=== PATIENT | male | born 1995 | race African-American/Black ===

== ENCOUNTER 2020-01-20 07:09 | Emergency (ER) | payer BC ==
--- NOTE | 2020-01-20 08:26 | ER ---
Nurse's Notes [facility] Name: Enriqueta Kaufman Age: 24 yrs Sex: Male : 1995 Arrival Date: 01/20/2020 Time: 07:16 Bed 19 Private MD: Diagnosis: Fever, unspecified;Viral syndrome Presentation: 01/19 07:27 Chief complaint: Patient states: fever and chills since 0500 this AM. Tylenol last ss taken just prior to arrival. Coronavirus screen: The patient has NOT traveled to a country currently being monitored by the [facility] within the last 14 days. Proceed with normal triage procedures. Ebola Screen: Patient denies exposure to infectious person. Patient denies travel to an Ebola-affected area in the 21 days before illness onset. Initial Sepsis Screen: Does the patient have a suspected source of infection? No. Patient's initial sepsis screen is negative. Initial Sepsis Screen: Does the patient meet any 2 criteria? No. Patient's initial sepsis screen is negative. Risk Assessment: Do you want to hurt yourself or someone else? Patient reports no desire to harm self or others. 07:27 Method Of Arrival: Ambulatory ss 07:27 Acuity: JASMINE 4 ss Historical: - Allergies: 07:29 Azithromycin; ss - Home Meds: 07:29 None [Active]; ss - PMHx: 07:29 None; ss - PSHx: 07:29 None; ss - Immunization history:: Adult Immunizations up to date. - Social history:: Smoking status: Patient denies any tobacco usage or history of. - Family history:: not pertinent. - Hospitalizations: : No recent hospitalization is reported. Screenin:27 Abuse screen: Denies threats or abuse. Denies injuries from another. Nutritional ss screening: No deficits noted. Tuberculosis screening: Never had TB. Fall Risk None identified. Assessment: 07:27 General: Appears in no apparent distress. comfortable, well groomed, well developed, ss well nourished, Behavior is calm, cooperative, Reports chills for 0-12 hours, fever for 0-12 hours, feeling ill for 0-12 hours, fatigue for 0-12 hours. Pain: Denies pain. Neuro: Level of Consciousness is awake, alert, obeys commands, Oriented to person, place, time, situation. Cardiovascular: Capillary refill < 3 seconds is brisk in bilateral fingers. Respiratory: Airway is patent Respiratory effort is even, unlabored, Respiratory pattern is regular, symmetrical. GI: Patient currently denies diarrhea, nausea, vomiting. : No signs and/or symptoms were reported regarding the genitourinary system. Derm: Skin is intact, is healthy with good turgor, Skin is dry, Skin is pink, warm \T\ dry. normal. Musculoskeletal: Circulation, motion, and sensation intact. Range of motion: intact in all extremities, Swelling absent. Vital Signs: 07:27 Resp 16; Weight 97.52 kg; Height 5 ft. 11 in. (180.34 cm); Pain 0/10; ss 07:27 BP 119 / 68; Pulse 91; Temp 99.7(O); Pulse Ox 96% ; ss 07:27 Body Mass Index 29.99 (97.52 kg, 180.34 cm) ED Course: 07:16 Patient arrived in ED. rg4 07:22 Sven Ulloa MD is Attending Physician. rn 07:26 Yaritza Macias, RN is Primary Nurse. aa5 07:27 Patient has correct armband on for positive identification. Bed in low position. Call ss light in reach. 07:29 Triage completed. ss 07:29 Arm band placed on right wrist. ss 08:39 No provider procedures requiring assistance completed. Patient did not have IV access ss during this emergency room visit. Administered Medications: No medications were administered Outcome: 08:25 Discharge ordered by . rn 08:39 Discharged to home ambulatory. ss 08:39 Condition: good 08:39 Discharge instructions given to patient, Instructed on discharge instructions, follow up and referral plans. medication usage, Demonstrated understanding of instructions, follow-up care, medications. 08:40 Patient left the ED. ss Signatures: Sven Ulloa MD MD rn Calderon, Audri, RN DAGO aaAntonella Haas RN RN ss Garcia, Rubi rg4
--- NOTE | 2020-01-20 08:26 | EDPHYS ---
Physician Documentation [facility] Name: Enriqueta Kaufman Age: 24 yrs Sex: Male : 1995 Arrival Date: 01/20/2020 Time: 07:16 Bed 19 Private MD: ED Physician Sven Ulloa HPI: 01/19 07:48 This 24 yrs old Male presents to ER via Ambulatory with complaints of Fever. rn 07:48 The patient reports fever, not measured (subjective). Onset: The symptoms/episode rn began/occurred this morning. Modifying factors: there are no obvious modifying factors. Severity of symptoms: At their worst the symptoms were mild in the emergency department the symptoms have improved. The patient has not experienced similar symptoms in the past. Reports woke up today with chills, shaking, subjective fever, and headache. [place] fine when went to bed, no recent travel, no obvious sick contacts. No cough/abd pain. Just had an episode of loose stool. . Historical: - Allergies: 07:29 Azithromycin; ss - Home Meds: 07:29 None [Active]; ss - PMHx: 07:29 None; ss - PSHx: 07:29 None; ss - Immunization history:: Adult Immunizations up to date. - Social history:: Smoking status: Patient denies any tobacco usage or history of. - Family history:: not pertinent. - Hospitalizations: : No recent hospitalization is reported. ROS: 07:48 Constitutional: + fever and chills Eyes: Negative for injury, pain, redness, and learning developer, ENT: Negative for injury, pain, and discharge, Neck: Negative for injury, pain, and swelling, Cardiovascular: Negative for chest pain, palpitations, and edema, Respiratory: Negative for shortness of breath, cough, wheezing, and pleuritic chest pain, Abdomen/GI: Negative for abdominal pain, nausea, vomiting, and constipation, MS/Extremity: Negative for injury and deformity, Skin: Negative for injury, rash, and discoloration, Neuro: Negative for weakness, numbness, tingling, and seizure. Exam: 07:48 Constitutional: This is a well developed, well nourished patient who is awake, alert, rn and in no acute distress. Ambulatory to room without difficulty or assistance Head/Face: Normocephalic, atraumatic. Eyes: Pupils equal round and reactive to light, extra-ocular motions intact. Lids and lashes normal. Conjunctiva and sclera are non-icteric and not injected. Cornea within normal limits. Periorbital areas with no swelling, redness, or edema. ENT: MMM, no pharyngeal erythema or swelling, no lesions Neck: Trachea midline, no thyromegaly or masses palpated, and no cervical lymphadenopathy. Supple, full range of motion without nuchal rigidity, or vertebral point tenderness. No Meningismus. Cardiovascular: Regular rate and rhythm. No pulse deficits. Respiratory: Lungs have equal breath sounds bilaterally, clear to auscultation. No increased work of breathing, no retractions or nasal flaring. Abdomen/GI: soft, non-tender Skin: Warm, dry, and no evidence of cellulitis. MS/ Extremity: Pulses equal, no cyanosis. Neurovascular intact. Full, normal range of motion. Equal circumference. Neuro: Awake and alert, GCS 15, oriented to person, place, time, and situation. Cranial nerves II-XII grossly intact. Motor strength 5/5 in all extremities. Sensory grossly intact. Cerebellar exam normal. Normal gait. Vital Signs: 07:27 Resp 16; Weight 97.52 kg; Height 5 ft. 11 in. (180.34 cm); Pain 0/10; ss 07:27 BP 119 / 68; Pulse 91; Temp 99.7(O); Pulse Ox 96% ; ss 07:27 Body Mass Index 29.99 (97.52 kg, 180.34 cm) MDM: 07:22 Patient medically screened. rn 08:23 Differential diagnosis: viral Infection, bacterial infection, URI, gastroenteritis. rn Data reviewed: vital signs, nurses notes, lab test result(s), and as a result, I will discharge patient. Counseling: I had a detailed discussion with the patient and/or guardian regarding: the historical points, exam findings, and any diagnostic results supporting the discharge/admit diagnosis, lab results, the need for outpatient follow up, to return to the emergency department if symptoms worsen or persist or if there are any questions or concerns that arise at home. Response to treatment: the patient's symptoms have markedly improved after treatment, the patient's condition has returned to base line, the patient is now symptom free, and as a result, I will discharge patient. Special discussion: I discussed with the patient/guardian in detail that at this point there is no indication for admission to the hospital. It is understood, however, that if the symptoms persist or worsen the patient needs to return immediately for re-evaluation. ED course: Pt improved with his own anti-pyretic at home, neg flu, normal vitals, feels much better, may be early viral syndrome given loose stool. Will dc home with fever Control, rest, and hydration.. 01/19 07:34 Order name: Flu; Complete Time: 08:25 rn Administered Medications: No medications were administered Disposition: 01/20/20 08:25 Discharged to Home. Impression: Fever, unspecified, Viral syndrome. - Condition is Stable. - Discharge Instructions: Fever, Adult. - Medication Reconciliation Form, Thank You Letter, Antibiotic Education, Prescription Opioid Use form. - Follow up: Private Physician; When: As needed; Reason: Recheck today's complaints, Re-evaluation by your physician. - Problem is new. - Symptoms have improved. Signatures: Dispatcher [employer] EDRI Sven Ulloa MD MD rn Smirch, Shelby, RN RN ss Corrections: (The following items were deleted from the chart) 08:40 08:25 01/20/2020 08:25 Discharged to Home. Impression: Fever, unspecified; Viral ss syndrome. Condition is Stable. Forms are Medication Reconciliation Form, Thank You Letter, Antibiotic Education, Prescription Opioid Use. Follow up: Private Physician; When: As needed; Reason: Recheck today's complaints, Re-evaluation by your physician. Problem is new. Symptoms have improved. rn
[2020-01-20 08:46] VITALS: BP 119/68; TEMP 99.7; O2SAT 96
== END 2020-01-20 08:40 | disposition home or self-care (01) ==
LOC: ER 07:09
DX: B34.9 Viral infection, unspecified (principal); Z88.3 Allergy status to other anti-infective agents
CPT/HCPCS: 87804; 99281